=== PATIENT | male | born 1970 | race African-American/Black ===

== ENCOUNTER 2019-11-18 11:07 | Emergency (ER) | payer SELFPAY ==
[2019-11-18] MEDS ORDERED: Bacitracin 1 PK ONE ×2 (12:41)
[2019-11-18] MEDS ORDERED: Adacel (T-DAP) 0.5 ML SYRINGE ONE (12:46)
--- NOTE | 2019-11-18 15:16 | RAD ---
RIGHT LEG: AP and lateral views show no fracture, periosteal reaction, or opaque foreign body. The tibia and fi bula appear normal. IMPRESSION: No acute findings POS: HOME
== END 2019-11-18 12:52 | disposition home or self-care (01) ==
LOC: BURERS 11:07
DX: S81.811A Laceration without foreign body, right lower leg, initial encounter (principal); F17.210 Nicotine dependence, cigarettes, uncomplicated; E11.9 Type 2 diabetes mellitus without complications; I10 Essential (primary) hypertension; W23.0XXA Caught, crushed, jammed, or pinched between moving objects, initial encounter
CPT/HCPCS: 12001; 90471; 90715